=== PATIENT | female | born 1930 | race Caucasian/White ===

== ENCOUNTER 2017-03-06 12:30 | Inpatient (IN) | payer MEDICARE, BC ==
[~2017-03-06] VITALS: Ht 165.1 cm; Wt 76.7 kg
--- NOTE | ~2017-03-06 | DS ---
PATIENT'S NAME: [facility]ACI [facility] AGE: 86 Y [address] ROOM: [address] [place], [place] [address] LOCATION: [facility] ADMIT DATE: 03/06/2017 Discharge Summary DISCHARGE DATE: 03/12/2017 FAMILY PHYSICIAN: Jose Josue MD ATTENDING PHYSICIAN: Geronimo Dunn CONSULTING PHYSICIAN: Dr. Russell. DISCHARGE DIAGNOSES: 1. Hyponatremia. 2. Frequent falls. 3. Parkinson's. 4. Diabetes mellitus type 2. 5. Left shoulder pain. 6. Dementia. 7. Depression. 8. Hypothyroidism. HOSPITAL COURSE: Please refer to admitting history and physical as dictated by Dr. Dunn. Briefly, the patient was admitted to [facility] [place] with hyponatremia, which did appear to be related to her hypovolemia secondary to her diuretics. Sodium upon admit was found to be 120. The patient was given desmopressin 2 mcg subcu every 6 hours x4 doses. She was started on hydration of normal saline. Heparin 5000 units subcu was used for DVT prophylaxis. Tylenol and tramadol were used for the patient's pain. She was monitored with mild sliding scale insulin for her diabetes. The patient's home dose of Zoloft was discontinued due to the concern for SIADH related to her hyponatremia. Electrolytes were replaced as needed. She was started on sodium chloride tablets. Physical Therapy and Occupational Therapy were consulted for her frequent falls. For her Parkinson disease, she was started on carbidopa and levodopa. The patient's sodium did gradually rise throughout her stay. She was noted to have some hypertension. She was given lisinopril 20 mg p.o. daily. She was noted to have some left shoulder pain. Dr. Russell did see the patient and injected. Prior to admit she had x-rays done, which did show a right hand nondisplaced 5th MC shaft fracture. A cock- up splint was recommended. CT scan of her head was done for concerns of normal pressure hydrocephalus. The patient did not want an MRI; therefore, the CT scan was performed, did not show any acute abnormalities or hydrocephalus. Her Casper was discontinued; she was able to void without difficulties. Her magnesium was noted to be 1.4; she was given magnesium sulfate 2 g IV. The patient continued to progress with therapies. She felt as though her balance had improved. Dr. Russell did see on the day of discharge. He felt that her shoulder was unresponsive to the steroid injection and the only other treatment to relieve pain would be a shoulder replacement and should heal fine PATIENT'S NAME: [facility]I [facility] AGE: 86 Y [address] ROOM: [place] [address] LOCATION: [facility] ADMIT DATE: 03/06/2017 Discharge Summary DISCHARGE DATE: 03/12/2017 FAMILY PHYSICIAN: Jose Josue MD ATTENDING PHYSICIAN: Geronimo Dunn per his recommendations as long as she does not fall and displace the fracture. On 03/12/2017, her sodium remained stable at 137. She was tolerating a regular diet. She was up ambulatory with the use of a walker and assistance. Her vital signs were stable. On 03/12/2017, it was felt as though she was stable to be discharged back to the [facility] Follow up with Dr. Josue in 5 days with a BMP on 03/14/2017 and close monitoring of her sodium. LABORATORY DATA: Sodium 120 upon admit, 137 on the day of discharge; potassium 3.4 upon admit, 3.9 prior to discharge; calcium 8.1; BUN within normal limits; creatinine 1.2 upon admit, 0.9 prior to discharge; GFR 43 upon admit, it dropped as low as 39, prior to discharge 59; magnesium 1.4, after replacement 1.8. Serum osmolarity 254. Hemoglobin A1c 5.8. TSH 0.161. WBC 7.3, hemoglobin 10.6, hematocrit 30.4, platelets 319. ESR 19. Urine nitrites negative, ketones negative, wbc 0 to 2, rbc's 20 to 50, bacteria rare, urine osmo 440, urine urea 248, urine creatinine 35. RADIOLOGY REPORTS: Right lower leg: No acute fracture. Metallic hardware in place at the distal fibula stabilizing old fracture. No ankle or knee dislocation. Right hand x-ray: Fractures with slight bone displacement at the right 4th and 5th metacarpal bones. CT of the head: Stable. No evidence of acute intracranial abnormality. DISCHARGE INSTRUCTIONS: The patient will be discharged to [facility] Dr. Josue to follow. Follow up in 5 days with PCP. Code status, no code. Diet, regular. Weightbearing as tolerated with assistance. Fall precautions. PT, OT to evaluate and treat as indicated. Oxygen as needed to keep saturations greater than 90%. BMP on 03/14/2017, results to Dr. Josue. REHAB POTENTIAL: Fair. DISCHARGE POTENTIAL: Fair. DISCHARGE MEDICATIONS: 1. Tylenol 650 mg p.o. every 8 hours. 2. Norvasc 10 mg p.o. daily. 3. Aspirin 81 mg p.o. daily. 4. Lipitor 40 mg p.o. at bedtime. 5. Sinemet 25/100, 1 tablet p.o. t.i.d. 6. Coreg 12.5 mg p.o. twice daily. 7. Colace 100 mg p.o. daily p.r.n. constipation. 8. Magnesium citrate p.r.n. constipation. 9. Hydralazine 25 mg p.o. 3 times a day, hold if systolic blood pressure is less than 110. PATIENT'S NAME: [facility]I [facility] AGE: 86 Y [address] ROOM: [place] [address] LOCATION: [facility] ADMIT DATE: 03/06/2017 Discharge Summary DISCHARGE DATE: 03/12/2017 FAMILY PHYSICIAN: Jose Josue MD ATTENDING PHYSICIAN: Geronimo Dunn 10. Niferex 150 mg p.o. twice daily. 11. Levothyroxine 100 mcg p.o. daily. 12. Lisinopril 20 mg p.o. at bedtime. 13. Protonix 40 mg p.o. daily. 14. Mirapex 1 mg p.o. t.i.d. 15. Sodium chloride tablet 2 g p.o. t.i.d. 16. Dulcolax 10 mg suppository as needed for constipation. 17. Tums 2 tablets p.o. every 4 hours as needed for upset stomach. 18. Debrox 1 drop every day p.r.n. ear wax. 19. Milk of magnesia 30 mL p.o. daily p.r.n. constipation. 20. Bengay, apply 3 times a day topically as needed. 21. Tramadol 25 mg p.o. every 8 hours as needed for pain. 22. Aspercreme, apply topically as needed. 23. Amoxicillin 2000 mg p.o. x1 prior to dental appointments. 24. Artificial Tears as needed. 25. Triamcinolone cream topically as needed for rash. 26. Metformin 500 mg p.o. twice daily. 27. Vitamin C 500 mg p.o. b.i.d. 28. Antacid 15 mL p.o. twice daily. 29. Eucerin cream topically 4 times a day. 30. Refresh drops 1 drop eyes 3 times daily for dry eyes. Thank you for allowing us to participate in the care of this patient as she has been hospitalized at [facility]. TIGIST BEAVER APRN FOR MD MICHELL RICHTER/modl /[id number] CC: MD Jose Gil MD d: 03/13/17 0558 t: 03/18/17 1613, DISCHARGE SUMMARY
--- NOTE | ~2017-03-06 | HP ---
PATIENT'S NAME: LACI [facility] AGE: 86 Y [address] ROOM: [id number] [place], [place] [address] LOCATION: [facility] ADMIT DATE: 03/06/2017 History & Physical DISCHARGE DATE: FAMILY PHYSICIAN: Jose Josue MD ATTENDING PHYSICIAN: MAME WILDER DATE OF SERVICE: CHIEF COMPLAINT: Multiple falls and hyponatremia. HISTORY OF PRESENT ILLNESS: An 86-year-old lady with a past medical history of hypertension, hyperlipidemia, TIA, and mild dementia who was a resident of assisted living facility and was transferred to a nursing facility just a couple of days ago because of the multiple falls she has been having in the assisted living facility, presented to the primary care physician's office for a regular checkup. In the preceding days, multiple x-rays have been done to look for any fractures regarding this falls. I do not have the report of the x-rays yet, I have been working on getting those. Primary care physician noted the sodium to be 122 and that patient is on multiple medications and he is worried about polypharmacy. There has been change of providers in the last 6 months to 1 year and medications have changed a lot. On my encounter, she is a very pleasant, 86-year-old lady lying comfortably in bed. She is complaining of left shoulder pain and saying that she is feeling stiff and that she had been falling a lot in the last couple of days. This trouble with the falling has been going on for quite some time now. She told me that she had multiple x- rays done in the last couple days without any fracture. She is complaining of left shoulder pain as well as right hand pain which have some splint on it. On further inquiry, she denied any headache or any dizziness, but states that her vision is poor. She denied any cough, shortness of breath, any chest pain, any palpitations, any abdominal pain, or any burning on urination. She stated that she is constipated and had a hard time moving her bowels. She did endorse that she does get swelling of her ankles. REVIEW OF SYSTEMS: All other systems reviewed and were negative except as mentioned in the HPI. PAST MEDICAL HISTORY: 1. Hypertension. 2. Hyperlipidemia. 3. Hypothyroidism. 4. Osteoarthritis. 5. Dementia. 6. Depression. PATIENT'S NAME: LACI [facility] AGE: 86 Y [address] ROOM: [id number] [place], [place] [address] LOCATION: [facility] ADMIT DATE: 03/06/2017 History & Physical DISCHARGE DATE: FAMILY PHYSICIAN: Jose Josue MD ATTENDING PHYSICIAN: MAME WILDER MEDICATIONS: Medications are being reconciled right now. SOCIAL HISTORY: Never a smoker. She lives in a nursing facility now. FAMILY HISTORY: Positive for cardiovascular events in both mom and dad, who in their 60s. ALLERGIES: THE PATIENT IS ALLERGIC TO BACTRIM, DURAGESIC, LOVENOX, SINEMET, AND TEGRETOL. PHYSICAL EXAMINATION: VITAL SIGNS: Blood pressure 168/78, 73, saturating 95% on room air, and respiratory rate of 20. GENERAL: No acute distress. Alert and oriented x3. HEENT: Head; atraumatic and normocephalic. Eyes; nonicteric. No pallor. Oropharynx; dry mucous membranes. CARDIOVASCULAR: S1 and S2. No murmurs, gallops, or rubs. LUNGS: Clear to auscultation bilaterally. ABDOMEN: Soft, nontender, nondistended. Bowel sounds present. EXTREMITIES: No clubbing, cyanosis, or edema. MUSCULOSKELETAL: Bruising, tenderness, and swelling of the right hand and a splint is in place. Multiple bruises on the extremities noted. No point tenderness could be elicited on the upper extremities. NEUROLOGIC: Cranial nerves 2 through 12 intact. No motor or sensory deficits. PSYCHIATRIC: Normal affect, mood, and speech. ENDOCRINE: No thyroid enlargement noted. LYMPHATICS: No lymphadenopathy noted. LABORATORY DATA: Lab work from the primary care physician's office showed a sodium of 122 today, potassium 3.7, chloride 83, bicarbonate 22, BUN 19, creatinine 1.4, calcium 9.4, and glucose of 122. White count of 11, hemoglobin of 11, and platelets of 401,000. Alkaline phosphatase of 216. TSH was 0.4, and then free T4 was 1.44. Urinalysis is negative. ASSESSMENT AND PLAN: 1. Hyponatremia. 2. Hypokalemia. 3. Multiple falls. 4. Dehydration. 5. Hypertension. PATIENT'S NAME: LACI [facility] AGE: 86 Y [address] ROOM: [address] [place], [place] [address] LOCATION: [facility] ADMIT DATE: 03/06/2017 History & Physical DISCHARGE DATE: FAMILY PHYSICIAN: Jose Josue MD ATTENDING PHYSICIAN: MAME WILDER 6. Type 2 diabetes mellitus. 7. Acute kidney injury on chronic kidney disease, stage 3 to 4. 8. Dementia. 9. Possible fracture in the right hand and in the left shoulder; x-rays are pending at this point. Plan: We are going to admit this lady to the inpatient. It appears that this hyponatremia is hypovolemic in nature and very likely secondary to Lasix. We are going to start gentle hydration with normal saline at this point. Start her on desmopressin as well to check for rapid rise of sodium. We are going to monitor I's and O's very carefully. Serial sodium checks. We are going to obtain x-ray reports from the outside facility to look for any fractures. Pain control will be provided primarily with Tylenol and if not adequate pain control, we will escalate to tramadol. She has been on Percocet and Ativan and that made her very drowsy and could very well be contributing to her falls. We will get urine lytes and monitor serial creatinine as well. We will start the deep venous thrombosis prophylaxis on her with the heparin given the reduced renal function. Sliding scale insulin for the diabetes management. We will obtain PT and OT on her. Medications are being reconciled and once done, we will try to obtain the medication list as much as we can. Activity fall precautions and I had discussion with the patient regarding her code status and the patient stated her wishes of being DNR/DNI. I spent one hour in providing care to this patient in which >50% of the time was spent providing direct care to the patient , explaining disease process, need for frequent labs to monitor Na and IVF resusistation. MD NIKI ROBLES/modl /[id number]: [id number] T: [id number] HISTORY & PHYSICAL
[2017-03-06] MEDS ORDERED: ASPIRIN LO-DOSE81 MG PO (14:29)
[2017-03-06] MEDS ORDERED: HYDRODIURIL25 MG PO (14:29)
[2017-03-06] MEDS ORDERED: MOBIC15 MG PO (14:30)
[2017-03-06] MEDS ORDERED: COLACE100 MG PO ×2 (14:30→14:53)
[2017-03-06] MEDS ORDERED: LASIX20 MG PO (14:31)
[2017-03-06] MEDS ORDERED: LEVOTHROID (S100 MCG PO (14:32)
[2017-03-06] MEDS ORDERED: ZOLOFT50 MG PO (14:32)
[2017-03-06] MEDS ORDERED: PROTONIX40 MG PO (14:35)
[2017-03-06] MEDS ORDERED: LIPITOR40 MG PO (14:35)
[2017-03-06] MEDS ORDERED: IMODIUM A-D2 MG PO (14:37)
[2017-03-06] MEDS ORDERED: AMOXICILLIN500 MG PO (14:38)
[2017-03-06] MEDS ORDERED: TUMS REGULAR ST1 TAB PO (14:39)
[2017-03-06] MEDS ORDERED: PHENERGAN25 M1 PO (14:39)
[2017-03-06] MEDS ORDERED: ROBITUSSIN COU118 M1 PO (14:41)
[2017-03-06] MEDS ORDERED: NORCO 5-325 TA1 EACH PO (14:45)
[2017-03-06] MEDS ORDERED: TESSALON PERLE100 MG PO (14:46)
[2017-03-06] MEDS ORDERED: BENGAY/ICY HOT/30 GM TOP (14:47)
[2017-03-06] MEDS ORDERED: ASPERCREME90 GM/TUBE TOP (14:48)
[2017-03-06] MEDS ORDERED: ARTIFICIALS TEA30 ML OPHTH (14:50)
[2017-03-06] MEDS ORDERED: MILK OF MA400 MG/5 M PO (14:52)
[2017-03-06] MEDS ORDERED: TRIAMCINOLONE 015 GM TOP (14:52)
[2017-03-06] MEDS ORDERED: DEBROX,CARBAMID15 ML OTIC (14:54)
[2017-03-06] MEDS ORDERED: KAOPECTATE262 MG/15 PO (14:55)
[2017-03-06] MEDS ORDERED: MAGNESIUM CITR100 MG PO (14:58)
[2017-03-06] MEDS ORDERED: GLUCOPHAGE500 MG PO (15:00)
[2017-03-06] MEDS ORDERED: COREG12.5 MG PO (15:02)
[2017-03-06] MEDS ORDERED: PRINIVIL (ZESTR20 MG PO (15:03)
[2017-03-06] MEDS ORDERED: NORVASC2.5 MG PO (15:04)
[2017-03-06] MEDS ORDERED: ASCORBIC ACID500 MG PO (15:05)
[2017-03-06] MEDS ORDERED: NIFEREX-150) (150 MG PO (15:06)
[2017-03-06] MEDS ORDERED: MIRAPEX1 MG PO (15:07)
[2017-03-06] MEDS ORDERED: TYLENOL325 MG PO (15:08)
[2017-03-06] MEDS ORDERED: [UNRECOGNIZED DRUG - OTHER] (15:10)
[2017-03-06] MEDS ORDERED: TRIAMINIC COLD118 ML PO (15:14)
[2017-03-06] MEDS ORDERED: ANTACID ANTI-G355 ML PO (15:14)
[2017-03-06] MEDS ORDERED: EUCERIN CREME57 GM TOP (15:15)
[2017-03-06] MEDS ORDERED: ATARAX25 MG PO (15:16)
[2017-03-06] MEDS ORDERED: DULCOLAX10 MG R (15:17)
[2017-03-06] MEDS ORDERED: REFRESH OPTIVE15 ML OPHTH (15:18)
[2017-03-06 16:03] LABS: CALCIUM 9.4 mg/dL (8.5-10.5); CREATININE 1.2 mg/dL (0.5-1.1); POTASSIUM 3.2 mMol/L (3.7-5.1)
[2017-03-06 16:07] LABS: ANION GAP 12.2 (10.0-19.0)
[2017-03-06 18:06] LABS: BILIRUBIN URINE NEGATIVE (NEGATIVE); BLOOD URINE NEGATIVE /UL (NEGATIVE); COLOR URINE YELLOW (YELLOW); GLUCOSE URINE NEGATIVE (NEGATIVE); KETONE URINE NEGATIVE (NEGATIVE); LEUKOCYTES URINE NEGATIVE /UL (NEGATIVE); NITRITE URINE NEGATIVE (NEGATIVE); PROTEIN URINE NEGATIVE (NEGATIVE); SPEC GRAVITY URINE 1.015 (1.003-1.035); TURBIDITY URINE CLEAR (CLEAR); UROBILINOGEN URINE NORMAL (NORMAL)
[2017-03-06 19:10] LABS: CREATININE 1.1 mg/dL (0.5-1.1); POTASSIUM 3.4 mMol/L (3.7-5.1)
[2017-03-06 19:12] LABS: ANION GAP 12.4 (10.0-19.0)
[2017-03-06 22:43] LABS: CALCIUM 8.3 mg/dL (8.5-10.5); POTASSIUM 4.1 mMol/L (3.7-5.1)
[2017-03-06 22:46] LABS: ANION GAP 12.1 (10.0-19.0)
[2017-03-07 02:30] LABS: CALCIUM 8.2 mg/dL (8.5-10.5); POTASSIUM 3.5 mMol/L (3.7-5.1)
[2017-03-07 02:33] LABS: ANION GAP 10.5 (10.0-19.0)
[2017-03-07 06:06] LABS: BASOPHIL % 0.3 %; EOSINOPHIL # 0.1 K/uL (0.0-0.5); EOSINOPHIL % 1.4 %; HEMATOCRIT 30.4 % (30.0-46.0); HEMOGLOBIN 10.6 g/dL (10.0-15.0); IMMATURE GRANULOCYTE % 0.5 %; LYMPHOCYTE # 1.6 K/uL (0.8-4.0); LYMPHOCYTE % 21.4 %; MCH 30.5 pg (27.0-34.0); MCHC 34.9 gm/dL (32.0-36.5); MCV 87.6 fl (83.0-98.0); MONOCYTE # 0.5 K/uL (0.0-1.0); MONOCYTE % 7.4 %; MPV 9.7 fl (9.4-12.4); NRBC % 0 /100WBC (0-0.00); PLATELET COUNT 319 K/uL (150-450); RBC 3.47 M/uL (3.00-5.00); RDW-CV 13.2 % (11.9-14.6); WBC 7.3 K/uL (4.0-11.0)
[2017-03-07 06:20] LABS: CALCIUM 8.5 mg/dL (8.5-10.5); POTASSIUM 3.3 mMol/L (3.7-5.1)
[2017-03-07 06:22] LABS: ANION GAP 13.3 (10.0-19.0)
[2017-03-07 11:03] LABS: CALCIUM 8.3 mg/dL (8.5-10.5)
[2017-03-07 11:04] LABS: ANION GAP 12.4 (10.0-19.0); POTASSIUM 3.4 mMol/L (3.7-5.1)
[2017-03-07 15:39] LABS: CREATININE 0.9 mg/dL (0.5-1.1); POTASSIUM 3.8 mMol/L (3.7-5.1)
[2017-03-07 15:40] LABS: ANION GAP 13.8 (10.0-19.0)
[2017-03-07 19:19] LABS: CALCIUM 8.2 mg/dL (8.5-10.5); POTASSIUM 3.7 mMol/L (3.7-5.1)
[2017-03-07 19:21] LABS: ANION GAP 13.7 (10.0-19.0)
[2017-03-07 23:21] LABS: BLOOD UREA NITROGEN 10 mg/dL (6-24); CALCIUM 7.7 mg/dL (8.5-10.5); CO2 25 mMol/L (22-32); CREATININE 0.8 mg/dL (0.5-1.1); ESTIMATED GFR (MDRD EQUATION) > 60; POTASSIUM 3.3 mMol/L (3.7-5.1)
[2017-03-07 23:24] LABS: ANION GAP 13.3 (10.0-19.0); CHLORIDE 87 mMol/L (96-110); SODIUM 122 mMol/L (135-145)
[2017-03-08 07:44] LABS: ANION GAP 13.4 (10.0-19.0); BLOOD UREA NITROGEN 8 mg/dL (6-24); CALCIUM 7.7 mg/dL (8.5-10.5); CHLORIDE 88 mMol/L (96-110); CO2 25 mMol/L (22-32); CREATININE 0.7 mg/dL (0.5-1.1); ESTIMATED GFR (MDRD EQUATION) > 60; POTASSIUM 3.4 mMol/L (3.7-5.1); SODIUM 123 mMol/L (135-145)
[2017-03-08 19:18] LABS: BLOOD UREA NITROGEN 7 mg/dL (6-24); CALCIUM 8.2 mg/dL (8.5-10.5); CO2 23 mMol/L (22-32); CREATININE 0.8 mg/dL (0.5-1.1); ESTIMATED GFR (MDRD EQUATION) > 60; POTASSIUM 3.6 mMol/L (3.7-5.1)
[2017-03-08 19:20] LABS: ANION GAP 15.6 (10.0-19.0); CHLORIDE 85 mMol/L (96-110); SODIUM 120 mMol/L (135-145)
[2017-03-09 08:50] LABS: BLOOD UREA NITROGEN 9 mg/dL (6-24); CALCIUM 8.5 mg/dL (8.5-10.5); CO2 22 mMol/L (22-32); CREATININE 0.8 mg/dL (0.5-1.1); ESTIMATED GFR (MDRD EQUATION) > 60; POTASSIUM 4.1 mMol/L (3.7-5.1)
[2017-03-09 08:53] LABS: ANION GAP 16.1 (10.0-19.0); CHLORIDE 87 mMol/L (96-110); SODIUM 121 mMol/L (135-145)
[2017-03-09 17:36] LABS: ANION GAP 13.1 (10.0-19.0); CALCIUM 8.6 mg/dL (8.5-10.5); POTASSIUM 4.1 mMol/L (3.7-5.1)
[2017-03-10 07:45] LABS: ANION GAP 13.7 (10.0-19.0); CALCIUM 8.5 mg/dL (8.5-10.5); CREATININE 0.9 mg/dL (0.5-1.1); POTASSIUM 3.7 mMol/L (3.7-5.1)
[2017-03-10 19:04] LABS: ANION GAP 13.5 (10.0-19.0); CALCIUM 8.4 mg/dL (8.5-10.5); CREATININE 1.3 mg/dL (0.5-1.1); POTASSIUM 3.5 mMol/L (3.7-5.1)
[2017-03-11 07:20] LABS: CALCIUM 8.4 mg/dL (8.5-10.5); CREATININE 1.1 mg/dL (0.5-1.1); POTASSIUM 3.7 mMol/L (3.7-5.1)
[2017-03-11 07:22] LABS: ANION GAP 11.7 (10.0-19.0)
[2017-03-11 20:08] LABS: ANION GAP 11.9 (10.0-19.0); CALCIUM 8.4 mg/dL (8.5-10.5); POTASSIUM 3.9 mMol/L (3.7-5.1)
[2017-03-12 05:38] LABS: ANION GAP 9.9 (10.0-19.0); CALCIUM 8.1 mg/dL (8.5-10.5); CREATININE 0.9 mg/dL (0.5-1.1); MAGNESIUM 1.8 mg/dL (1.8-2.6); POTASSIUM 3.9 mMol/L (3.7-5.1)
== END 2017-03-12 12:55 | DRG 641 ==
LOC: GPCU 13:31 → GMSU 03-10 19:24
PROVIDERS: Internal Medicine; ADMIT Internal Medicine
PROC: 0R9K3ZZ Drainage of Left Shoulder Joint, Percutaneous Approach (ICD-10-PCS; principal; 2017-03-08)
PROC: 3E0U33Z Introduction of Anti-inflammatory into Joints, Percutaneous Approach (ICD-10-PCS; 2017-03-08)
DX: E87.1 Hypo-osmolality and hyponatremia (principal); E86.0 Dehydration; G35 Multiple sclerosis; N17.9 Acute kidney failure, unspecified; N18.4 Chronic kidney disease, stage 4 (severe); F03.90 Unspecified dementia, unspecified severity, without behavioral disturbance, psychotic disturbance, mood disturbance, and anxiety; R13.10 Dysphagia, unspecified; E11.9 Type 2 diabetes mellitus without complications; E78.5 Hyperlipidemia, unspecified; Z66 Do not resuscitate; Z86.73 Personal history of transient ischemic attack (TIA), and cerebral infarction without residual deficits; E03.9 Hypothyroidism, unspecified; F32.9 Major depressive disorder, single episode, unspecified; E87.6 Hypokalemia; I12.9 Hypertensive chronic kidney disease with stage 1 through stage 4 chronic kidney disease, or unspecified chronic kidney disease; E86.1 Hypovolemia; Z91.81 History of falling; M19.012 Primary osteoarthritis, left shoulder; S62.306A Unspecified fracture of fifth metacarpal bone, right hand, initial encounter for closed fracture; R10.13 Epigastric pain; T50.2X5A Adverse effect of carbonic-anhydrase inhibitors, benzothiadiazides and other diuretics, initial encounter
CPT/HCPCS: J1040; J1644; J2001; J2597; J3475; J3480; J7030; J7050